=== PATIENT | male | born 1970 | race Caucasian/White ===

== ENCOUNTER 2023-08-19 10:11 | Emergency (ER) | payer OTHER ==
[~2023-08-19] VITALS: Ht 170.2 cm; Wt 98.4 kg
[2023-08-19] MEDS ORDERED: CLIN300C12 PO (11:03)
[2023-08-19] MEDS ORDERED: CLINDAMYCIN HCL 150 MG CAPSULE ONE (11:10)
[2023-08-19] MEDS ORDERED: IBUPROFEN 600 MG TABLET ONE (11:10)
[2023-08-19] MEDS: CLINDAMYCIN HCL 150 MG CAPSULE PO ONE (11:17)
[2023-08-19] MEDS: IBUPROFEN 600 MG TABLET PO ONE (11:17)
[2023-08-19 11:20] VITALS: BP 78/78; TEMP 98; O2SAT 99
== END 2023-08-19 11:20 | disposition home or self-care (01) ==
LOC: ER 10:11
DX: L97.318 Non-pressure chronic ulcer of right ankle with other specified severity (principal)

== ENCOUNTER 2024-06-20 13:50 | Emergency (ER) | payer OTHER ==
[~2024-06-20] VITALS: Ht 175.3 cm; Wt 81.6 kg
[~2024-06-20 13:50] MED LIST: CLIN300C12 PO
[2024-06-20] MEDS ORDERED: SULF1TAB48 PO (15:35)
[2024-06-20 15:46] VITALS: BP 114/62; TEMP 98.7; O2SAT 98
== END 2024-06-20 15:47 | disposition home or self-care (01) ==
LOC: ER 13:58
DX: L03.116 Cellulitis of left lower limb (principal); L03.115 Cellulitis of right lower limb; M79.89 Other specified soft tissue disorders